=== PATIENT | male | born 1945 | race Caucasian/White ===

== ENCOUNTER → 2016-10-13 | Outpatient (CLI) | payer MEDICARE ==
--- NOTE | 2016-10-13 14:06 | REP ---
Chest two views HISTORY: Chest pain Comparison: 02/06/2014 The lungs are clear. The heart is normal in size. The pulmonary vasculature is normal in appearance. Degenerative change is present in the thoracic spine. IMPRESSION: No acute disease. Signed by Aramis Mayo MD 10/13/2016 01:58 P
[2016-10-13 19:21] LABS: AST/SGOT 16 U/L (15-37)
== END ==
LOC: M SMT 13:31
PROVIDERS: ATTEND Internal Medicine Pulmonary Disease
DX: R07.9 Chest pain, unspecified (principal)

== ENCOUNTER → 2023-02-12 | Outpatient (CLI) | payer MEDICARE | LOC: M PLAIMG 11:28 | PROVIDERS: ATTEND Internal Medicine Pulmonary Disease | DX: R91.8 Other nonspecific abnormal finding of lung field (principal); I51.7 Cardiomegaly; J47.0 Bronchiectasis with acute lower respiratory infection ==

== ENCOUNTER → 2023-07-02 | Outpatient (CLI) | payer MEDICARE | LOC: M PLALAB 12:07 | PROVIDERS: ATTEND Internal Medicine Pulmonary Disease | DX: R91.8 Other nonspecific abnormal finding of lung field (principal); J47.0 Bronchiectasis with acute lower respiratory infection ==